=== PATIENT | female | born 1940 | race Hispanic/Latino ===

== ENCOUNTER 2016-12-12 08:01 | Outpatient (CLI) | payer MEDICARE ==
--- NOTE | 2016-12-12 13:00 | Mammography Report ---
BILATERAL DIGITAL SCREENING MAMMOGRAM with CAD : 12/12/16 08:01:00 CLINICAL: Routine screening. COMPARISON:10/27/15 FINDINGS: The breasts are heterogeneously dense, which may obscure small masses. No mass, architectural distortion or suspicious calcifications. IMPRESSION: No mammographic evidence of malignancy. BI-RADS CATEGORY: 2 -- Benign RECOMMENDATION: Routine mammographic screening in one year. COMMENT: Patient follow-up letters are generated by our [employer] application.
--- NOTE | 2016-12-12 15:35 | Mammography Report ---
BONE DEXA:12/12/16 08:01:00 CLINICAL: Postmenopausal. COMPARISON: 09/25/13 TECHNIQUE: Two site bone DEXA performed on an Hologic scanner. FINDINGS: The average BMD of the lumbar spine L1-L4 is 1.074g/cm squared with a T-score of +0.2 and a Z-score of +2.7. This compares to 1.108g/cm squared on the last exam and represents a -3.1%% change from the previous baseline. The average BMD of the left hip is 0.672g/cm squared with a T-score of -2.2 and a Z-score of -0.3. This compares to 0.721g/cm squared on the last exam and represents a -6.8% change from the previous baseline. IMPRESSION: 1. WHO classification: Normal with average fracture risk based on spine measurements. However, a 3.1% decline in spine BMD compared to the prior exam. 2. WHO classification: Osteopenia with increased fracture risk based on left hip measurements. A 6.8% decline in left hip BMD compared to the prior exam. RECOMMENDATION: Clinical correlation and routine screening. DEFINITIONS: BMD = Bone Mineral Density T-score = BMD related to mean peak bone mass of young adult (mean expressed in Standard Deviation) Z-score = Age matched BMD expressed in SD World Health Organization (WHO) Diagnostic Criteria Normal T-score > -1 SD Osteopenia T-score between -1 and -2.4 SD Osteoporosis T-score -2.5 SD or below NOTE: BMD is not the only risk factor for fracture; also consider factors such as the patient's age, risk of falling, previous osteoporotic fracture, family history of osteoporotic fractures, current smoker, and low body weight. Z-scores are not calculated if >80 years of age.
== END 2016-12-12 08:02 | disposition home or self-care (01) ==
LOC: SPVWC 08:01
PROVIDERS: ATTEND Obstetrics & Gynecology Gynecology
DX: Z12.31 Encounter for screening mammogram for malignant neoplasm of breast (principal); M85.80 Other specified disorders of bone density and structure, unspecified site; Z78.0 Asymptomatic menopausal state
CPT/HCPCS: 77080; G0202; 77067

== ENCOUNTER 2020-07-05 14:47 | Emergency (ER) | payer MEDICARE ==
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
[2020-07-05 15:41] VITALS: BP 195/62
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
== END 2020-07-05 19:23 | disposition home or self-care (01) ==
LOC: ED 14:47
DX: E07.89 Other specified disorders of thyroid (principal); I10 Essential (primary) hypertension; Z79.899 Other long term (current) drug therapy; Z90.710 Acquired absence of both cervix and uterus; Z98.890 Other specified postprocedural states
CPT/HCPCS: 70450; 72100; 72125